=== PATIENT | male | born 1950 | race Caucasian/White ===

== ENCOUNTER 2022-11-19 19:52 | Inpatient (IN) ==
[2022-11-19 20:38] LABS: Basophils % 0.4 % (0.0-0.8); Eosinophils # 0.1 10*3/uL (0.0-0.87); Eosinophils % 1.5 % (0.00-10.9); Hematocrit 23.3 VOL% (42.0-52.0); Hemoglobin 6.5 GM/DL (14.0-18.0); Immature Granulocytes % 0.6 %; Immature Granulocytes Absolute 0.05 #; Lymphocytes # 1.1 10*3/uL (1.4-4.0); Lymphocytes % 12.8 % (21.2-54.2); Mean Corpuscular HGB Conc 27.9 GM/DL (32-36); Mean Corpuscular Volume 107.4 FL (87-102); Mean Platelet Volume 10.1 FL (9.6-12.0); Monocytes # 0.8 10*3/uL (0.11-0.8); Monocytes % 9.5 % (1.7-12.7); NRBC # 0.05 10*3/uL; Neutrophils % 75.2 % (38.7-73.9); Platelet Count 244 T/CUMM (130-400); Red Blood Count 2.17 MC/CUMM (3.8-5.5); Red Cell Distribution Width 19.5 % (9.3-17.3); White Blood Count 8.2 T/CUMM (4-12)
[2022-11-19 20:54] LABS: INR 1.2; PT Patient Result 13.5 SECS (10.1-12.1); Partial Thromboplastin Time 25.6 SECS (23.7-32.9)
[2022-11-19] MEDS ORDERED: PANTOPRAZOLE 40 MG VIAL IV STA (21:00)
[2022-11-19 21:01] LABS: Albumin 2.9 G/DL (3.4-5.0); Bilirubin,Total 0.7 MG/DL (0.20-1.00); Calcium 8.8 MG/DL (8.5-10.1); Osmolality,Calculated 285.3 MOS/KG (273-304); Potassium 4.7 MMOL/L (3.5-5.1); Total Protein 6.5 G/DL (6.4-8.2)
[2022-11-19] MEDS ORDERED: GLUCAGON 1 MG VIAL IM PRN (21:48)
[2022-11-19] MEDS ORDERED: ONDANSETRON 4 MG/2 ML VIAL IV PRN (21:48)
[2022-11-19] MEDS ORDERED: SODIUM CHLORIDE 0.9% 1,000 ML IV PRN (21:48)
[2022-11-19] MEDS ORDERED: ACETAMINOPHEN 325 MG TABLET PO PRN (21:48)
[2022-11-19] MEDS ORDERED: MORPHINE 2 MG/1 ML SYRINGE IV PRN (21:48)
[2022-11-19] MEDS ORDERED: DEXTROSE 10% 250 ML BAG IV PRN (21:50)
[2022-11-20] MEDS: INSULIN REGULAR 100 UNIT/ML SUBCUT SCH ×4 (01:27→18:32)
[2022-11-20] MEDS: SODIUM CHLORIDE 0.9% 1,000 ML IV SCH ×2 (01:28→22:52)
[2022-11-20 05:59] LABS: Basophils % 0.3 % (0.0-0.8); Eosinophils # 0.2 10*3/uL (0.0-0.87); Eosinophils % 2.5 % (0.00-10.9); Hemoglobin 7.8 GM/DL (14.0-18.0); Immature Granulocytes % 0.3 %; Immature Granulocytes Absolute 0.02 #; Lymphocytes # 0.8 10*3/uL (1.4-4.0); Mean Corpuscular HGB Conc 31.2 GM/DL (32-36); Mean Corpuscular Volume 99.6 FL (87-102); Mean Platelet Volume 9.9 FL (9.6-12.0); Monocytes # 0.6 10*3/uL (0.11-0.8); Monocytes % 10.8 % (1.7-12.7); NRBC # 0.02 10*3/uL; Neutrophils % 72.1 % (38.7-73.9); Platelet Count 168 T/CUMM (130-400); Red Blood Count 2.51 MC/CUMM (3.8-5.5); Red Cell Distribution Width 19.4 % (9.3-17.3); White Blood Count 5.9 T/CUMM (4-12)
[2022-11-20 06:33] LABS: Albumin 2.7 G/DL (3.4-5.0); Bilirubin,Total 0.8 MG/DL (0.20-1.00); Calcium 8.4 MG/DL (8.5-10.1); Osmolality,Calculated 284.1 MOS/KG (273-304); Potassium 4.2 MMOL/L (3.5-5.1); Risk Ratio 2.06; Total Protein 5.8 G/DL (6.4-8.2); VLDL Cholesterol 20.6 MG/DL
[2022-11-20] MEDS ORDERED: SODIUM CHLORIDE 0.9% 1,000 ML IV PRN (08:36)
[2022-11-20] MEDS ORDERED: ROSUVASTATIN 10 MG TABLET PO SCH (09:00)
[2022-11-20] MEDS: TAMSULOSIN 0.4 MG CAPSULE PO SCH (09:00)
[2022-11-20] MEDS: FUROSEMIDE 40 MG TABLET PO SCH (09:03)
[2022-11-20] MEDS: METOPROLOL SUCCINATE XL 25 MG TABLET PO SCH ×2 (09:03→21:30)
[2022-11-20] MEDS: GABAPENTIN 300 MG CAPSULE PO SCH (09:03)
[2022-11-20] MEDS: PANTOPRAZOLE 40 MG VIAL IV SCH (09:03)
[2022-11-20] MEDS: DOCUSATE SODIUM 100 MG CAPSULE PO SCH ×2 (09:04→21:30)
[2022-11-20] MEDS: AMIODARONE 200 MG TABLET PO SCH (09:06)
[2022-11-20] MEDS: POTASSIUM CHLORIDE 20 MEQ TABLET PO SCH (09:07)
[2022-11-20] MEDS ORDERED: diphenhydrAMINE 50 MG/1 ML VIAL IV ONE (09:24)
[2022-11-20] MEDS: LIDOCAINE 5% PATCH TRANSDERM SCH ×2 (09:32→21:31)
[2022-11-20] MEDS ORDERED: DIGOXIN 0.125 MG TABLET PO SCH (17:00)
[2022-11-20] MEDS ORDERED: FUROSEMIDE 20 MG/2 ML VIAL IV ONE (17:30)
[2022-11-20] MEDS: ZINC OXIDE PASTE 113 GM TUBE TOP SCH (21:30)
[2022-11-20] MEDS: MENTHOL/ZINC OXIDE OINT 71 GM JAR TOP SCH (21:30)
[2022-11-21] MEDS: INSULIN REGULAR 100 UNIT/ML SUBCUT SCH ×4 (00:59→18:51)
[2022-11-21 04:55] LABS: Basophils % 0.4 % (0.0-0.8); Eosinophils # 0.1 10*3/uL (0.0-0.87); Eosinophils % 2.2 % (0.00-10.9); Hematocrit 34.5 VOL% (42.0-52.0); Hemoglobin 10.6 GM/DL (14.0-18.0); Immature Granulocytes % 0.4 %; Immature Granulocytes Absolute 0.02 #; Lymphocytes # 0.8 10*3/uL (1.4-4.0); Lymphocytes % 14.2 % (21.2-54.2); Mean Corpuscular HGB Conc 30.7 GM/DL (32-36); Mean Corpuscular Volume 96.9 FL (87-102); Mean Platelet Volume 10.5 FL (9.6-12.0); Monocytes # 0.5 10*3/uL (0.11-0.8); Monocytes % 9.7 % (1.7-12.7); Neutrophils % 73.1 % (38.7-73.9); Platelet Count 175 T/CUMM (130-400); Red Blood Count 3.56 MC/CUMM (3.8-5.5); Red Cell Distribution Width 19.1 % (9.3-17.3); White Blood Count 5.6 T/CUMM (4-12)
[2022-11-21 05:21] LABS: Calcium 8.7 MG/DL (8.5-10.1); Potassium 4.1 MMOL/L (3.5-5.1)
[2022-11-21] MEDS: ZINC OXIDE PASTE 113 GM TUBE TOP SCH ×2 (10:49→20:47)
[2022-11-21] MEDS: MENTHOL/ZINC OXIDE OINT 71 GM JAR TOP SCH ×2 (10:49→20:47)
[2022-11-21] MEDS: TAMSULOSIN 0.4 MG CAPSULE PO SCH (10:50)
[2022-11-21] MEDS: POTASSIUM CHLORIDE 20 MEQ TABLET PO SCH (10:50)
[2022-11-21] MEDS: ROSUVASTATIN 20 MG TABLET PO SCH (10:50)
[2022-11-21] MEDS: AMIODARONE 200 MG TABLET PO SCH (10:51)
[2022-11-21] MEDS: GABAPENTIN 300 MG CAPSULE PO SCH (10:51)
[2022-11-21] MEDS: METOPROLOL SUCCINATE XL 25 MG TABLET PO SCH ×2 (10:51→20:46)
[2022-11-21] MEDS: FUROSEMIDE 40 MG TABLET PO SCH (10:51)
[2022-11-21] MEDS: DOCUSATE SODIUM 100 MG CAPSULE PO SCH ×2 (10:52→20:46)
[2022-11-21] MEDS: LIDOCAINE 5% PATCH TRANSDERM SCH ×2 (11:04→20:47)
[2022-11-21] MEDS: PANTOPRAZOLE 40 MG VIAL IV SCH (11:06)
[2022-11-21] MEDS: SODIUM CHLORIDE 0.9% 1,000 ML IV SCH (23:34)
[2022-11-22] MEDS: INSULIN REGULAR 100 UNIT/ML SUBCUT SCH ×3 (00:34→13:45)
[2022-11-22] MEDS ORDERED: LACTATED RINGERS 1,000 ML IV SCH (08:00)
[2022-11-22 09:04] LABS: Basophils % 0.2 % (0.0-0.8); Eosinophils # 0.1 10*3/uL (0.0-0.87); Eosinophils % 1.9 % (0.00-10.9); Hematocrit 36.5 VOL% (42.0-52.0); Hemoglobin 11.5 GM/DL (14.0-18.0); Immature Granulocytes % 0.4 %; Immature Granulocytes Absolute 0.02 #; Lymphocytes # 0.6 10*3/uL (1.4-4.0); Lymphocytes % 11.5 % (21.2-54.2); Mean Corpuscular HGB Conc 31.5 GM/DL (32-36); Mean Corpuscular Volume 97.1 FL (87-102); Mean Platelet Volume 10.3 FL (9.6-12.0); Monocytes # 0.5 10*3/uL (0.11-0.8); Monocytes % 9.4 % (1.7-12.7); Neutrophils % 76.6 % (38.7-73.9); Platelet Count 161 T/CUMM (130-400); Red Blood Count 3.76 MC/CUMM (3.8-5.5); Red Cell Distribution Width 18.5 % (9.3-17.3); White Blood Count 5.3 T/CUMM (4-12)
[2022-11-22] MEDS: ROSUVASTATIN 20 MG TABLET PO SCH (09:32)
[2022-11-22] MEDS: METOPROLOL SUCCINATE XL 25 MG TABLET PO SCH (09:32)
[2022-11-22] MEDS: TAMSULOSIN 0.4 MG CAPSULE PO SCH (09:32)
[2022-11-22] MEDS: ZINC OXIDE PASTE 113 GM TUBE TOP SCH (09:32)
[2022-11-22] MEDS: POTASSIUM CHLORIDE 20 MEQ TABLET PO SCH (09:32)
[2022-11-22] MEDS: MENTHOL/ZINC OXIDE OINT 71 GM JAR TOP SCH (09:32)
[2022-11-22] MEDS: LIDOCAINE 5% PATCH TRANSDERM SCH (09:32)
[2022-11-22] MEDS: GABAPENTIN 300 MG CAPSULE PO SCH (09:32)
[2022-11-22] MEDS: FUROSEMIDE 40 MG TABLET PO SCH (09:32)
[2022-11-22] MEDS: AMIODARONE 200 MG TABLET PO SCH (09:32)
[2022-11-22] MEDS: DOCUSATE SODIUM 100 MG CAPSULE PO SCH (09:32)
[2022-11-22] MEDS ORDERED: propofoL 200 MG/20 ML VIAL IV ONE (12:46)
[2022-11-22] MEDS ORDERED: LIDOCAINE 2% 5 ML VIAL ONE (12:46)
[2022-11-22] MEDS ORDERED: ETOMIDATE 20 MG/10 ML VIAL IV ONE (12:46)
[2022-11-22] MEDS ORDERED: ASCORBIC ACID 500 MG TABLET PO SCH (21:00)
[2022-11-22 22:02] VITALS: BP 110/68
== END 2022-11-22 16:20 | disposition home or self-care (01) | DRG 813 ==
LOC: N.ED 19:52 → N.EDINP 19:52 → N.TELES 11-20 09:10
PROVIDERS: ADMIT Family Medicine; ATTEND Family Medicine